=== PATIENT | female | born 1975 | race Caucasian/White ===

== ENCOUNTER 2017-02-09 14:55 | Emergency (ER) | payer SELFPAY ==
[~2017-02-09] VITALS: Ht 165.1 cm; Wt 95.0 kg
[2017-02-09] MEDS ORDERED: HYDR-3307 PO (15:10)
[2017-02-09] MEDS ORDERED: GABA300C10 PO (15:10)
[2017-02-09] MEDS ORDERED: ONDANSETRON 2MG/ML, 2ML ONE (16:07)
[2017-02-09] MEDS ORDERED: ONDANSETRON 2MG/ML, 2ML IVPush ONE (16:30)
[2017-02-09] MEDS ORDERED: MORPHINE SULFATE 4 MG/ML, 1ML IVPush ONE (17:00)
[2017-02-09] MEDS ORDERED: MORPHINE SULFATE 4 MG/ML, 1ML ONE (17:04)
[2017-02-09 17:18] VITALS: BP 131/88
== END 2017-02-09 17:51 | disposition home or self-care (01) ==
LOC: ED 17:30
DX: S80.01XA Contusion of right knee, initial encounter (principal); S70.01XA Contusion of right hip, initial encounter; W19.XXXA Unspecified fall, initial encounter; Y93.89 Activity, other specified; Y92.89 Other specified places as the place of occurrence of the external cause; Y99.8 Other external cause status
CPT/HCPCS: 73552; 73564; 96374; 96375; 99284; J2405